=== PATIENT | male | born 1990 | race African-American/Black ===

== ENCOUNTER 2019-02-09 23:19 | Emergency (ER) | payer BC ==
[~2019-02-09] VITALS: Ht 170.2 cm; Wt 68.0 kg
[2019-02-09 23:34] VITALS: BP 139/78
--- NOTE | 2019-02-09 23:52 | PHYS DOC ---
Past Medical History Past Medical History: No Pertinent History Past Surgical History: No Surgical History Alcohol Use: Heavy Drug Use: Marijuana Adult General Chief Complaint Chief Complaint: General Complaint HPI HPI Patient is a 28 year old male who presents with a large quarter-sized thrombosed hemorrhoid coming from the rectum. Patient states today he had a bowel movement and noticed throbbing pain and when he wiped there was a small amount of blood on the told paper. Patient states he's never had this problem before. Patient states he has no constipation problems and he has not been having to strain. Review of Systems Review of Systems Constitutional: Denies fever or chills [] Respiratory: Denies cough or shortness of breath [] Cardiovascular: No additional information not addressed in HPI [] GI: Rectal hemorrhoid. Denies abdominal pain, nausea, vomiting, bloody stools or diarrhea [] : Denies dysuria or hematuria [] All other systems were reviewed and found to be within normal limits, except as documented in this note. Current Medications Current Medications Current Medications Medications (Trade) Dose Ordered Sig/Don Start Time Stop Time Status Last Admin Dose Admin Lidocaine HCl 20 ml 1X ONCE 02/10/19 00:15 02/10/19 00:16 DC 02/09/19 23:55 20 ML Morphine Sulfate (Morphine Sulfate) 5 mg 1X ONCE 02/10/19 00:15 02/10/19 00:16 DC 02/09/19 23:55 5 MG Allergies Allergies Allergies Coded Allergies Type Severity Reaction Last Updated Verified No Known Drug Allergies 08/29/15 No Physical Exam Physical Exam Constitutional: Well developed, well nourished, no acute distress, non-toxic appearance. [] Lungs & Thorax: Bilateral breath sounds clear to auscultation [] Abdomen: Bowel sounds normal, soft, Rectal thrombosed hemorrhoid with tenderness, no masses, no pulsatile masses. [] Skin: Warm, dry, no erythema, no rash. [] Neurologic: Alert and oriented X 3, normal motor function, normal sensory function, no focal deficits noted. [] Psychologic: Affect normal, judgement normal, mood normal. [] Current Patient Data Vital Signs Vital Signs Date Time Temp Pulse Resp B/P (MAP) Pulse Ox O2 Delivery O2 Flow Rate FiO2 02/09/19 23:55 16 99 02/09/19 23:34 98.6 78 139/78 (98) Room Air 98.6 EKG EKG [] Radiology/Procedures Radiology/Procedures [] Course & Med Decision Making Course & Med Decision Making Patient is a 28 year old male who presents with a large quarter-sized thromb osed hemorrhoid coming from the rectum. Patient states today he had a bowel movement and noticed throbbing pain and when he wiped there was a small amount of blood on the told paper. Patient states he's never had this problem before. Patient states he has no constipation problems and he has not been having to strain. The hemorrhoid is quarter sized, hard, purple in color and very tender to palpation. Patient denies any abdominal pain, nausea, vomiting, diarrhea, constipation, fevers, chest pain, shortness of air, dizziness. Patient denies seeing blood in his stool in the toilet. Patient denies any dysuria symptoms. Abdomen is soft and nontender. I have had Dr Smith see this patient also. Area is opened and drained. Patient to follow up with general surgery as soon as possible. Rectal Exam: Normal tone, quarter sized thrombosed hemorrhoid, Positive control Stool: Brown Abscess Incision and Drainage with irrigation by me: Location: Rectal thrombosed hemorrhoid Anesthesia: Local 2% Lidocaine Technique: 0.5cm Disrupted loculations w/ instrumentation. Small pea sized blood clot removed Packing: None Complications: Neurovascularly intact post procedure 48 hour wound check. Scar minimization instructions given. ED Ultrasound: Abscess localized by me using concurrent ultrasound guidance and assessment of the anatomy. Real time image archived in the medical record confirms anatomy. Dragon Disclaimer Dragon Disclaimer This electronic medical record was generated, in whole or in part, using a voice recognition dictation system. Departure Departure Impression: Primary Impression: Hemorrhoid thrombosis Disposition: HOME, SELF-CARE Condition: STABLE Referrals: NO PCP (PCP) ESTHER RANKIN MD Patient Instructions: Hemorrhoids, Sitz Bath Additional Instructions: Follow up with general surgery. Take medication as prescribed. Take stool softener to help with pain with bowel movement but stop if diarrhea occurs. Do sitz baths at least 3 times a day if you can. Scripts Hydrocortisone (ANUSOL-HC) 30 Gm Cream..g. 1 SIMIN TP BID, #30 GM 1 Refill Prov: DEBBIE ELLER APRN 02/10/19 Docusate Sodium (COLACE) 100 Mg Capsule 1 CAP PO BID, #30 CAP STOP TAKING IF DIARRHEA OCCURS Prov: DEBBIE ELLER APRN 02/10/19 Hydrocodone/Apap 5-325 (NORCO 5-325 TABLET) 1 Each Tablet 1 TAB PO PRN Q6HRS PRN for PAIN, #10 TAB 0 Refills Prov: DEBBIE ELLER APRN 02/10/19 DEBBIE ELLER APRN Feb 09, 2019 23:52
[2019-02-10] MEDS ORDERED: DOCU-109 PO
[2019-02-10] MEDS ORDERED: HYDR-3164 PO
[2019-02-10] MEDS ORDERED: MORPHINE SULFATE 10 MG/ML VIAL. IM ONE (00:15)
[2019-02-10] MEDS ORDERED: LIDOCAINE 2% 20 ML VIAL. IJ ONE (00:15)
[2019-02-10] MEDS ORDERED: HYDR30CR61 TP (00:22)
== END 2019-02-10 00:30 | disposition home or self-care (01) ==
LOC: ER 23:19
DX: K64.5 Perianal venous thrombosis (principal)
CPT/HCPCS: 46083; 96372; 99284; J2001; J2270

== ENCOUNTER 2019-03-03 22:21 | Emergency (ER) | payer BC ==
[~2019-03-03] VITALS: Ht 180.3 cm; Wt 63.5 kg
[~2019-03-03 22:21] MED LIST: DOCU-109 PO; HYDR-3164 PO; HYDR30CR61 TP
[2019-03-03 22:50] VITALS: BP 136/85
[2019-03-03] MEDS ORDERED: ACETAMINOPHEN 500 MG TABLET PO ONE (23:45)
[2019-03-03] MEDS ORDERED: METH4TAB2 PO (23:54)
[2019-03-03] MEDS ORDERED: AMOX875T PO (23:54)
--- NOTE | 2019-03-03 23:54 | PHYS DOC ---
Past Medical History Past Medical History: No Pertinent History (ROLA MACK APRN) Past Surgical History: No Surgical History (ROLA MACK APRN) Alcohol Use: Heavy Drug Use: Marijuana (ROLA MACK APRN) Adult General Chief Complaint Chief Complaint: DIZZY/LIGHT HEADED HPI HPI Patient is a 28 year old AA who presents to the emergency department with complaints of tactile fever, chills, body aches, nasal congestion, sinus pressure, and cough for the last week. Patient states he feels like he has the flu. He denies any nausea, vomiting, diarrhea, abdominal pain, sore throat, or rash. He currently rates his pain a 7 out of 10 on the pain scale, there are no alleviating or exacerbating factors. He denies any recent sick contacts. (ROLA MACK APRN) Review of Systems Review of Systems Constitutional: Reports fever and chills for a week Eyes: Denies change in visual acuity, redness, or eye pain [] HENT: Denies sore throat; reports nasal congestion and ear pressure Respiratory: Denies wheezing or shortness of breath; reports productive cough with clear to white sputum [] Cardiovascular: No additional information not addressed in HPI [] GI: Denies abdominal pain, nausea, vomiting, or diarrhea [] Musculoskeletal: Denies back pain or joint pain; jeniffer generalized body aches [] Integument: Denies rash or skin lesions [] Neurologic: Denies headache Complete systems were reviewed and found to be within normal limits, except as documented in this note. (ROLA MACK APRN) Current Medications Current Medications Current Medications Medications (Trade) Dose Ordered Sig/Don Start Time Stop Time Status Last Admin Dose Admin Acetaminophen (Tylenol) 1,000 mg 1X ONCE 03/03/19 23:45 03/03/19 23:46 DC 03/04/19 00:28 1,000 MG (ZACH ROMERO DO) Allergies Allergies Allergies Coded Allergies Type Severity Reaction Last Updated Verified No Known Drug Allergies 08/29/15 No (ZACH ROMERO DO) Physical Exam Physical Exam Constitutional: Well developed, well nourished, no acute distress, ill appearance. [] HENT: Normocephalic, atraumatic, bilateral external ears normal, cobblestone appearance of posterior pharynx, oropharynx moist, no oral exudates, nasal turbinates edematous and erythematous bilat; effusions of bilaterals TMs without perforation; frontal sinus TTP bilateral Eyes: PERRLA, EOMI, conjunctiva normal, no discharge. [] Neck: Normal range of motion, no tenderness, supple, no stridor. [] Cardiovascular:Heart rate regular rhythm, no murmur [] Lungs & Thorax: Bilateral breath sounds clear to auscultation [] Skin: Warm, dry, no erythema, no rash. [] Back: No tenderness Extremities: No cyanosis, no clubbing, ROM intact, no edema. [] Neurologic: Alert and oriented X 3, no focal deficits noted. [] Psychologic: Affect normal, judgement normal, mood normal. [] (ROLA MACK APRN) Current Patient Data Vital Signs Vital Signs Date Time Temp Pulse Resp B/P (MAP) Pulse Ox O2 Delivery O2 Flow Rate FiO2 03/03/19 22:50 100.2 93 18 136/85 (102) 99 Room Air 100.2 (ROMEROZACH ARMIJO DO) EKG EKG [] (ROLA MACK APRN) Radiology/Procedures Radiology/Procedures [] (ROLA MACK APRN) Course & Med Decision Making Course & Med Decision Making Pertinent Labs and Imaging studies reviewed. (See chart for details) dx: URI, suppurative OM bilateral, rhinitis Prescription for medrol dosepak, and augmentin. Take 10 mg of generic Zyrtec (cetirizine) or Claritin at bedtime and use over the counter Flonase (fluticasone) nasal spray 2 sprays each nostril once daily in the morning. Tylenol or ibuprofen as needed for pain/fever. Increase clear fluids. Avoid triggers such as smoke, fragrance, dust, and pollen. Follow-up with primary care doctor if symptoms persist, return to the ER if symptoms worsen. Patient verbalized an understanding of home care, medications, follow-up, and return to ED instructions and was in agreement with the plan of care. [] (ROLA MACK APRN) Dragon Disclaimer Dragon Disclaimer This electronic medical record was generated, in whole or in part, using a voice recognition dictation system. (ROLA MACK APRN) Departure Departure Impression: Primary Impression: Suppurative otitis media of both ears without rupture of tympanic membranes Additional Impressions: URI (upper respiratory infection) Allergic rhinitis Disposition: 01 HOME, SELF-CARE Condition: STABLE Referrals: NO PCP (PCP) Patient Instructions: Allergic Rhinitis, Otitis Media, Adult, [id number], Upper Respiratory Infection, Adult, [id number] Additional Instructions: Fill the prescription(s) and use as directed. Recommend that you take 10 mg of generic Zyrtec (cetirizine) or Claritin at bedtime and use over the counter Flonase (fluticasone) nasal spray 2 sprays each nostril once daily in the morning. You may take Tylenol or ibuprofen as needed for pain/fever. Increase clear fluids. Avoid triggers such as smoke, fragrance, dust, and pollen. You may take OTC cough suppressants as needed. Follow-up with your primary care doctor if symptoms persist, return to the ER if symptoms worsen. Scripts Amoxicillin (AMOXICILLIN) 875 Mg Tablet 1 TAB PO BID, #14 TAB 0 Refills Prov: ROLA MACK SOFT DRINK POWDER MIXER 03/03/19 Methylprednisolone (MEDROL) 4 Mg Tab.ds.pk 1 PKG PO UD, #1 PKG 0 Refills Prov: ROLA MACK SOFT DRINK POWDER MIXER 03/03/19 Attending Signature Attending Signature I have reviewed the PA/MERCHANDISE COMPLAINT ADJUSTER's note and plan of care. I was available for consultation as needed during the patient's visit in the emergency department. I agree with the clinical impression, plan, and disposition. (ZACH ROMERO DO) Problem Qualifiers Additional Impressions: URI (upper respiratory infection) URI type: unspecified URI Qualified Codes: J06.9 - Acute upper respiratory infection, unspecified Allergic rhinitis Allergic rhinitis trigger: unspecified Allergic rhinitis seasonality: unspecified Qualified Codes: J30.9 - Allergic rhinitis, unspecified ROLA MACK APRN Mar 03, 2019 23:54 ZACH ROMERO DO Mar 04, 2019 07:38
== END 2019-03-04 00:25 | disposition home or self-care (01) ==
LOC: ER 22:21
DX: J30.9 Allergic rhinitis, unspecified (principal); J06.9 Acute upper respiratory infection, unspecified; H66.43 Suppurative otitis media, unspecified, bilateral; F10.20 Alcohol dependence, uncomplicated; Y90.9 Presence of alcohol in blood, level not specified
CPT/HCPCS: 99284

== ENCOUNTER 2019-10-26 12:10 | Emergency (ER) | payer BC ==
[~2019-10-26] VITALS: Ht 180.3 cm; Wt 80.0 kg
[~2019-10-26 12:10] MED LIST changes: +AMOX875T PO; +METH4TAB2 PO
[2019-10-26 12:15] VITALS: BP 150/109
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
== END 2019-10-26 13:07 | disposition home or self-care (01) ==
LOC: ER 12:10
DX: R51 Headache (principal); R42 Dizziness and giddiness; F17.200 Nicotine dependence, unspecified, uncomplicated; F12.90 Cannabis use, unspecified, uncomplicated; F10.10 Alcohol abuse, uncomplicated
CPT/HCPCS: 70450; 99284

== ENCOUNTER 2019-11-01 10:59 | Emergency (ER) | payer BC ==
[~2019-11-01] VITALS: Ht 180.3 cm; Wt 63.6 kg
[2019-11-01 11:49] VITALS: BP 137/81
[2019-11-01] MEDS ORDERED: ONDA4TAB12 PO (12:15)
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
== END 2019-11-01 12:20 | disposition home or self-care (01) ==
LOC: ER 10:59
DX: R11.2 Nausea with vomiting, unspecified (principal); R42 Dizziness and giddiness; F41.9 Anxiety disorder, unspecified; F31.9 Bipolar disorder, unspecified; F17.200 Nicotine dependence, unspecified, uncomplicated; F12.90 Cannabis use, unspecified, uncomplicated; F10.10 Alcohol abuse, uncomplicated
CPT/HCPCS: 99283